=== PATIENT | female | born 1960 | race Caucasian/White ===

== ENCOUNTER 2018-07-21 05:29 | Day surgery (SDC) | payer BC ==
[2018-07-21] VITALS (11 sets, daily range): BP systolic 98–122; BP diastolic 61–85; PULSE 57–100; TEMP 97.8–98.6
[~2018-07-21] VITALS: Ht 160 cm; Wt 70.9 kg
[~2018-07-21 05:29] MED LIST: 5-HTP100 MG PO; CATAPLEX B PO; CETIRIZINE PO; CHROMIUM GTF200 MCG PO; CITRIMAX 250250 MG PO; COENZYME PO; COLON HERBAL CL1 CAP PO; CRYSELLE 30 MCG1 TAB PO; L GLUTAMINE PO; MINERALS PO; OMEGA 31000 MG PO; PHENDIMETRAZIN105 MG PO; RHODIOLA PO; THERMOTABS 2871 TA1 PO; VITAMIN D 400400 IU PO; VITAMIN D3 PO; ZONEGRAN25 MG PO; [UNRECOGNIZED DRUG - OTHER] PO; [UNRECOGNIZED DRUG - OTHER] PO; [UNRECOGNIZED DRUG - OTHER] PO; [UNRECOGNIZED DRUG - OTHER] PO; [UNRECOGNIZED DRUG - OTHER] PO; [UNRECOGNIZED DRUG - OTHER] PO; [UNRECOGNIZED DRUG - OTHER] PO; [UNRECOGNIZED DRUG - OTHER] PO
[2018-07-21] MEDS ORDERED: XANAX 0.5MG0.5 MG PO (05:52)
[2018-07-21] MEDS ORDERED: VYVANSE70 MG PO (05:53)
[2018-07-21] MEDS ORDERED: ALEVE 220MG220 MG PO (05:53)
[2018-07-22 00:20] VITALS: BP 111/66; PULSE 75; TEMP 98.2
[2018-07-22 03:42] VITALS: BP 107/76; PULSE 66; TEMP 98.4
[2018-07-22 08:44] VITALS: BP 103/71; PULSE 72; TEMP 97.9
[2018-07-22 10:59] VITALS: BP 107/68; PULSE 85; TEMP 98.4
[2018-07-22 11:42] VITALS: BP 107/68; PULSE 85; TEMP 98.4
== END 2018-07-22 13:24 | disposition home or self-care (01) ==
LOC: SDCO 05:29 → SURG 08:50 → SDCO 07-22 13:24
DX: C67.9 Malignant neoplasm of bladder, unspecified (principal); M54.30 Sciatica, unspecified side; Z82.3 Family history of stroke
CPT/HCPCS: OP; C1769; J0690; J1885; J2405; J2704; J3010; J3480; J7120; J9280; Q9967

== ENCOUNTER 2019-08-31 06:29 | Day surgery (SDC) | payer BC ==
[~2019-08-31] VITALS: Ht 162.6 cm; Wt 69.7 kg
[~2019-08-31 06:29] MED LIST changes: +ALEVE 220MG220 MG PO; +VYVANSE70 MG PO; +XANAX 0.5MG0.5 MG PO
[2019-08-31 07:01] VITALS: BP 110/85; PULSE 87; TEMP 98.2
[2019-08-31] MEDS ORDERED: SAXENDA6 MG/ML SQ (07:12)
--- NOTE | 2019-08-31 07:12 | NUR ---
TO RM AT 0641- CALL LIGHT IN REACH
[2019-08-31 09:55] VITALS: BP 108/76; PULSE 78; TEMP 97.3
--- NOTE | 2019-08-31 09:55 | NUR ---
TO RM 7 PER CART FROM PACU. ALERT ORIENTED X 3, TALKING TO STAFF AND FAMILY. RECEIVED WATER AND CRACKERS. DENIES PAIN OR DISCOMFORT AT THIS TIME. PATIENT VOIDED IN PACU - 100CC PER REPORT.
[2019-08-31 10:10] VITALS: BP 127/80; PULSE 78
--- NOTE | 2019-08-31 10:10 | NUR ---
ATE 100% AND TOLERATED WELL. RECEIVED 2ND CUP OF WATER DENIES N/V DENIES PAIN OR DISCOMFORT
[2019-08-31 10:30] VITALS: BP 125/81; PULSE 90
--- NOTE | 2019-08-31 10:30 | NUR ---
RECEIVED DISCHARGE INSTRUCTIONS AND VERBALIZED UNDERSTANDING. DISCONTINUED IV AND INT- CATHETER INTACT PATIENT GETTING DRESSED.
--- NOTE | 2019-08-31 10:45 | NUR ---
DISCHARGED PER WC BY NURSING STAFF TO PRIVATE CAR IN CARE OF Elina BEARD
[2019-08-31 10:48] VITALS: BP 112/72; PULSE 86
== END 2019-08-31 11:02 | disposition home or self-care (01) ==
LOC: SDCO 06:29
DX: C67.5 Malignant neoplasm of bladder neck (principal); F41.9 Anxiety disorder, unspecified; M54.30 Sciatica, unspecified side; C67.8 Malignant neoplasm of overlapping sites of bladder
CPT/HCPCS: J0690; J1100; J2405; J2704; J3010; J7120; Q9967

== ENCOUNTER 2020-11-08 14:03 | Day surgery (SDC) | payer BC ==
[~2020-11-08] VITALS: Ht 161.3 cm; Wt 73.2 kg
[~2020-11-08 14:03] MED LIST changes: +SAXENDA6 MG/ML SQ
[2020-11-08 14:50] VITALS: BP 125/78; PULSE 82; TEMP 98.1
[2020-11-08] MEDS ORDERED: PHARMASSURE ZIN50 MG PO (15:22)
[2020-11-08] MEDS ORDERED: VITAMIN C500 MG PO (15:22)
[2020-11-08] MEDS ORDERED: IMMUNE DEFENSE PO (15:24)
[2020-11-08] MEDS ORDERED: VITAMIN B122500 MCG PO (15:26)
[2020-11-08] MEDS ORDERED: MASON NATURAL2000 IU PO (15:26)
[2020-11-08] MEDS ORDERED: SAXENDA6 MG/ML SQ (15:28)
[2020-11-08 17:25] VITALS: BP 115/67; PULSE 57; TEMP 97.8
[2020-11-08 17:40] VITALS: BP 119/80; PULSE 90
[2020-11-08 17:55] VITALS: BP 117/62; PULSE 74; TEMP 98
--- NOTE | 2020-11-08 18:14 | NUR ---
PT TRANSFERRED UP FROM OR VIA BED, AND TRANSFERRED INTO BED IN 350. PT DENIES PAIN, TOLERATED EATING 80% OF DINNER AND DRINKING WATER. PT PEED AND WAS CLEAR IN TOILET. NO PAIN OR ISSUES NOTED.
--- NOTE | 2020-11-08 19:26 | NUR ---
PT'S IV REMOVED BY THIS NURSE, CATHETER INTACT. PT EDUCATED ABOUT S/S OF INFECTION AND IMPORTANCE OF FLUIDS, TO NOTIFY ABOUT IN CHANGES IN URINATION. THIS NURSE ASSSITED PT DOWN TO PRIVATE VEHICLE HOME.
== END 2020-11-08 19:27 | disposition home or self-care (01) ==
LOC: SDCO 14:03 → SURG 17:25 → SDCO 19:27
DX: C67.9 Malignant neoplasm of bladder, unspecified (principal)
CPT/HCPCS: OP; J0690; J1100; J1885; J2405; J2704; J3010; J7120

== ENCOUNTER 2022-03-13 13:42 | Day surgery (SDC) | payer BC ==
[~2022-03-13] VITALS: Ht 160 cm; Wt 65.8 kg
[~2022-03-13 13:42] MED LIST changes: +IMMUNE DEFENSE PO; +MASON NATURAL2000 IU PO; +PHARMASSURE ZIN50 MG PO; +VITAMIN B122500 MCG PO; +VITAMIN C500 MG PO
[2022-03-13] MEDS ORDERED: MAGNESIUM200 MG PO (14:18)
[2022-03-13] MEDS ORDERED: B COMPLEX #11 TA1 PO (14:19)
[2022-03-13] MEDS ORDERED: [UNRECOGNIZED DRUG - OTHER] PO (14:20)
[2022-03-13] MEDS ORDERED: ALLEGRA ALLERG180 MG PO (14:20)
[2022-03-13] MEDS ORDERED: FLONASEALLERGY NS (14:21)
[2022-03-13 14:25] VITALS: BP 113/73; PULSE 72; TEMP 98.4
[2022-03-13 21:26] VITALS: BP 102/73; PULSE 69; TEMP 97.8
[2022-03-13 21:45] VITALS: BP 102/73; PULSE 69; TEMP 97.8
[2022-03-13 22:45] VITALS: BP 92/66; PULSE 85
[2022-03-14 04:38] VITALS: BP 75/52; PULSE 86; TEMP 98.2
--- NOTE | 2022-03-14 07:31 | NUR ---
Patient to the floor following a TURBT. Patient had 3 way vasquez catheter connected to CBI, draining yellow urine when she arrived to the floor. Patient is pleasant and A&0x3, at the bedside during arrival. Full body assessment and medication administration completed without difficulty. Patient tolerating oral intake well. Throughout the shift the patients urine decreased in color until it was a pale yellow; patient had no complaints of pain of bladder spasms. At approximately 0600 patients catheter was primed and pulled without difficulty. As of the end of shift mechanic the patient had yet to urinate on her own. This nurse educated the patient to let day shift know when she urinated. No other complaints at this time, call light within reach.
[2022-03-14 08:15] VITALS: BP 101/59; PULSE 82; TEMP 98
--- NOTE | 2022-03-14 10:40 | NUR ---
DISCHARGE INSTRUCTIONS REVIEWED WITH PT/. DISCONTINUED INT PT TOLERATED WELL. PT LEFT UNIT AMBULATORY.
== END 2022-03-14 10:43 | disposition home or self-care (01) ==
LOC: SDCO 13:42 → SURG 19:00 → SDCO 03-14 10:43
DX: C67.9 Malignant neoplasm of bladder, unspecified (principal)
CPT/HCPCS: OP; C1769; J1100; J1170; J2250; J2405; J2704; J3010; J7120; Q9967